=== PATIENT | male | born 1935 | race Caucasian/White ===

== ENCOUNTER 2020-10-24 05:10 | Inpatient (IN) | payer MEDICARE, BC ==
[2020-10-24] MEDS ORDERED: XYLOCAINE 2%-EPI 1:100,000 20 ML VIAL ONE (05:39)
[2020-10-24] MEDS ORDERED: Thrombin 5000 UNITS/5 ML VIAL ONE (05:40)
[2020-10-24] MEDS ORDERED: Sodium Chloride 0.9% 20 ML ONE (05:40)
[2020-10-24] MEDS ORDERED: Albumin 5% 500 ML ONE (06:17)
[2020-10-24] MEDS ORDERED: Acetaminophen 325 MG TAB PO PRN (07:35)
[2020-10-24] MEDS ORDERED: diphenhydrAMINE 50 MG CAP PO PRN (07:35)
[2020-10-24] MEDS ORDERED: Promethazine HCl 25 MG/ML VIAL IM PRN ×2 (07:35→12:57)
[2020-10-24] MEDS ORDERED: Promethazine 25 MG TAB PO PRN (07:35)
[2020-10-24] MEDS ORDERED: Mag-Al 1200 mg/1200 mg/30 ML UDCUP PO PRN (07:35)
[2020-10-24] MEDS ORDERED: Labetalol HCl 100 MG/20 ML VIAL SLOW IVP PRN (07:35)
[2020-10-24] MEDS ORDERED: Docusate 100 MG CAP PO PRN (07:35)
[2020-10-24] MEDS ORDERED: Morphine 2 MG/ML VIAL SLOW IVP PRN (07:35)
[2020-10-24] MEDS ORDERED: hydrALAZINE 20 MG/ML VIAL SLOW IVP PRN (07:35)
[2020-10-24] MEDS ORDERED: traMADol HCl 50 MG TAB PO PRN (07:43)
[2020-10-24] MEDS ORDERED: Acetaminophen/Codeine 30-300mg Tablet PO PRN (07:44)
[2020-10-24] MEDS ORDERED: CEFAZOLIN 2 GM in Premix Bag 1 BAG IVPB SCH ×3 (07:45→19:00)
[2020-10-24 08:49] LABS: Lactic Acid 2.9 mmol/L (0.5-2.2)
[2020-10-24] MEDS ORDERED: Rocuronium Bromide 10 MG/ML (10ML VIAL) ONE (10:04)
[2020-10-24] MEDS ORDERED: ePHEDrine 50 MG/ML VIAL ONE (10:04)
[2020-10-24] MEDS ORDERED: Ondansetron PF 4 MG/2 ML Vial ONE (10:04)
[2020-10-24] MEDS ORDERED: PROPOFOL 200 MG/20 ML VIAL ONE (10:04)
[2020-10-24] MEDS ORDERED: PHENYLEPHRINE-NS 100 MCG/ML 10 ML SYRINGE ONE (10:04)
[2020-10-24] MEDS ORDERED: Lidocaine 1% PF 5 ML VIAL ONE (10:04)
[2020-10-24] MEDS ORDERED: Metoprolol Tartrate 5 MG/5 ML VIAL ONE (10:49)
[2020-10-24] MEDS ORDERED: Midazolam HCl 2 mg/2 ml Vial ONE (10:50)
[2020-10-24] MEDS ORDERED: Fentanyl 100 MCG/2 ML VIAL ONE (10:50)
[2020-10-24] MEDS ORDERED: SUGAMMADEX SODIUM 200 MG/2 ML VIAL ONE (12:22)
[2020-10-24] MEDS ORDERED: Ondansetron HCl/PF 4 MG/2 ML Vial IVP PRN (12:57)
[2020-10-24] MEDS ORDERED: Promethazine HCl 25 MG/ML VIAL SLOW IVP PRN (12:57)
[2020-10-24 14:17] VITALS: BMI 25.8
[2020-10-24] MEDS: Sodium Chloride 0.9% 1,000 ML IV SCH (14:57)
[2020-10-24] MEDS ORDERED: Norepinephrine 8 MG/0.9% NS 0 ML ONE (16:55)
[2020-10-24] MEDS: CEFAZOLIN 2 GM in Premix Bag 1 BAG IVPB SCH (21:21)
[2020-10-24] MEDS ORDERED: Metoprolol Tartrate 5 MG/5 ML VIAL IVP SCH (23:30)
[2020-10-25] MEDS ORDERED: Amiodarone 450 MG, Admixture Fee 1 EACH in Dextrose 5% in Water 250 ML IVPB SCH (01:45)
[2020-10-25 02:07] LABS: Band 8 % (5-11); Hemoglobin 10.9 g/dL (14.0-18.0); Hypochromia SLIGHT = 6-15 cells (100X) (0-5/hpf); Lymphocytes 18 % (21-51); MDiff Complete? YES; Mean Corpuscular HGB CONC 35.4 g/dL (32.0-36.0); Mean Corpuscular Hemoglobin 34.8 pg (27.0-31.0); Mean Corpuscular Volume 98.5 fL (78.0-98.0); Mean Platelet Volume 7.5 fL (7.4-10.4); Monocytes 14 % (0-10); Neutrophil 52 % (42-75); Platelet Count 103 thou/uL (130-400); Platelet Morphology Comment Appears Decreased; RBC Distribution Width 14.5 % (11.5-14.5); Reactive Lymphocytes 8 % (0-10); Red Blood Cell (RBC) Count 3.12 mill/uL (4.70-6.10); White Blood Cell (WBC) Count 3.3 thou/uL (4.8-10.8)
[2020-10-25 02:24] LABS: Anion Gap 13 mmol/L (10-20); BUN (Urea Nitrogen) 16 mg/dL (8.4-25.7); Calc. Creatinine Clearance 108 mL/min (70-130); Calcium 8.3 mg/dL (7.8-10.44); Carbon Dioxide 17 mmol/L (23-31); Chloride 106 mmol/L (98-107); Glucose 129 mg/dL (83-110); Potassium 4.2 mmol/L (3.5-5.1); Sodium 132 mmol/L (136-145)
[2020-10-25] MEDS ORDERED: Magnesium 2 GM/50 ML 2 GM in Premix Bag 1 BAG IVPB SCH (03:15)
[2020-10-25] MEDS: CEFAZOLIN 2 GM in Premix Bag 1 BAG IVPB SCH ×3 (04:35→17:45)
[2020-10-25] MEDS: Sodium Chloride 0.9% 1,000 ML IV SCH ×2 (04:37→12:03)
[2020-10-25] MEDS ORDERED: Sodium Chloride 0.9% (PF) 10 ML VIAL FS PRN (07:45)
[2020-10-25 08:44] LABS: ALT (SGPT) Less than 7 U/L (8-55); AST (SGOT) 15 U/L (5-34); Albumin 2.7 g/dL (3.4-4.8); Alkaline Phosphatase 52 U/L (40-110); Anion Gap 9 mmol/L (10-20); BUN (Urea Nitrogen) 18 mg/dL (8.4-25.7); Bilirubin, Total 0.5 mg/dL (0.2-1.2); Calc. Creatinine Clearance 113 mL/min (70-130); Calcium 7.9 mg/dL (7.8-10.44); Carbon Dioxide 21 mmol/L (23-31); Chloride 106 mmol/L (98-107); Globulin 2.5 g/dL (2.4-3.5); Glucose 114 mg/dL (83-110); Potassium 4.1 mmol/L (3.5-5.1); Protein, Total 5.2 g/dL (5.8-8.1); Sodium 132 mmol/L (136-145)
[2020-10-25 08:47] LABS: Band 4 % (5-11); Hemoglobin 10.7 g/dL (14.0-18.0); Lymphocytes 19 % (21-51); MDiff Complete? YES; Mean Corpuscular HGB CONC 34.5 g/dL (32.0-36.0); Mean Corpuscular Hemoglobin 34.2 pg (27.0-31.0); Mean Platelet Volume 7.7 fL (7.4-10.4); Monocytes 14 % (0-10); Neutrophil 62 % (42-75); Platelet Count 119 thou/uL (130-400); Platelet Morphology Comment Appears Decreased; RBC Distribution Width 14.6 % (11.5-14.5); RBC Morphology Normal; Reactive Lymphocytes 1 % (0-10); Red Blood Cell (RBC) Count 3.14 mill/uL (4.70-6.10); White Blood Cell (WBC) Count 3.2 thou/uL (4.8-10.8)
[2020-10-25] MEDS: Pantoprazole 40 MG VIAL IVP SCH (09:44)
[2020-10-26] MEDS: Sodium Chloride 0.9% 1,000 ML IV SCH ×2 (05:24→14:17)
[2020-10-26] MEDS: CEFAZOLIN 2 GM in Premix Bag 1 BAG IVPB SCH ×3 (05:26→20:24)
[2020-10-26] MEDS: Pantoprazole 40 MG VIAL IVP SCH (08:25)
[2020-10-26] MEDS ORDERED: Regadenoson 0.4 MG/5 ML SYRINGE ONE (10:34)
[2020-10-26] MEDS ORDERED: Hydrocodone-Acetamin 15 ML UDCUP PER TUBE PRN (15:23)
[2020-10-26] MEDS: Amiodarone 200 MG TAB PO SCH (20:24)
[2020-10-27] MEDS: CEFAZOLIN 2 GM in Premix Bag 1 BAG IVPB SCH ×2 (02:19→12:29)
[2020-10-27] MEDS: Sodium Chloride 0.9% 1,000 ML IV SCH (02:19)
[2020-10-27] MEDS: Amiodarone 200 MG TAB PO SCH ×2 (09:29→20:54)
[2020-10-27] MEDS: Pantoprazole 40 MG VIAL IVP SCH (09:30)
[2020-10-27] MEDS: Cephalexin 250 MG CAP PO SCH (20:54)
[2020-10-27 23:30] LABS: SARS-CoV-2 PCR by NAA Not Detected (NotDetected)
[2020-10-28 07:20] LABS: Hemoglobin 10.9 g/dL (14.0-18.0); Mean Corpuscular HGB CONC 35.4 g/dL (32.0-36.0); Mean Corpuscular Hemoglobin 34.4 pg (27.0-31.0); Mean Corpuscular Volume 97.1 fL (78.0-98.0); Mean Platelet Volume 6.7 fL (7.4-10.4); Platelet Count 183 thou/uL (130-400); RBC Distribution Width 14.4 % (11.5-14.5); Red Blood Cell (RBC) Count 3.18 mill/uL (4.70-6.10); White Blood Cell (WBC) Count 2.8 thou/uL (4.8-10.8)
[2020-10-28 07:31] LABS: Anion Gap 10 mmol/L (10-20); BUN (Urea Nitrogen) 19 mg/dL (8.4-25.7); Calc. Creatinine Clearance 113 mL/min (70-130); Calcium 7.8 mg/dL (7.8-10.44); Carbon Dioxide 20 mmol/L (23-31); Chloride 106 mmol/L (98-107); Glucose 98 mg/dL (83-110); Potassium 3.8 mmol/L (3.5-5.1); Sodium 132 mmol/L (136-145)
[2020-10-28] MEDS: Cephalexin 250 MG CAP PO SCH ×2 (07:54→20:02)
[2020-10-28] MEDS: Amiodarone 200 MG TAB PO SCH ×2 (07:54→20:02)
[2020-10-28 08:52] LABS: Band 8 % (5-11); Lymphocytes 21 % (21-51); MDiff Complete? YES; Monocytes 16 % (0-10); Neutrophil 52 % (42-75); Platelet Morphology Comment Appears Adequate; RBC Morphology Normal; Reactive Lymphocytes 2 % (0-10)
[2020-10-28] MEDS ORDERED: Lidocaine 1% (PF) 30 ML VIAL ONE ×2 (09:17→10:40)
[2020-10-28] MEDS ORDERED: Gentamicin 80 MG/2 ML VIAL ONE (09:17)
[2020-10-28] MEDS ORDERED: CEFAZOLIN 1 GM VIAL ONE (09:17)
[2020-10-28] MEDS ORDERED: Fentanyl 100 MCG/2 ML VIAL ONE (10:33)
[2020-10-28] MEDS ORDERED: Midazolam HCl 2 mg/2 ml Vial ONE (10:33)
[2020-10-28] MEDS ORDERED: Vancomycin 1 GM/200 ML BAG ONE (10:41)
[2020-10-28] MEDS ORDERED: Iopamidol 370 76% 50 ML VIAL FS ONE (11:56)
[2020-10-28] MEDS: Acetaminophen 650 MG/20.3 ML UDCUP PO PRN ×2 (14:22→20:02)
[2020-10-28] MEDS ORDERED: Sodium Chloride 0.9% 1,000 ML IV SCH (16:15)
[2020-10-29 04:50] LABS: #Lymphocytes 0.7 thou/uL (1.20-3.40); #Monocytes 0.5 thou/uL (0.11-0.59); #Neutrophils 2.6 thou/uL (1.40-6.50); %Basophils 0.1 % (0.0-1.0); %Eosinophils 1.2 % (0.0-10.0); %Lymphocytes 18.6 % (21.0-51.0); %Monocytes 13.8 % (0.0-10.0); %Neutrophils 66.3 % (42.0-75.0); Hemoglobin 11.3 g/dL (14.0-18.0); Mean Corpuscular HGB CONC 34.5 g/dL (32.0-36.0); Mean Corpuscular Hemoglobin 33.7 pg (27.0-31.0); Mean Corpuscular Volume 97.6 fL (78.0-98.0); Mean Platelet Volume 7.2 fL (7.4-10.4); Platelet Count 187 thou/uL (130-400); RBC Distribution Width 14.4 % (11.5-14.5); Red Blood Cell (RBC) Count 3.35 mill/uL (4.70-6.10); White Blood Cell (WBC) Count 3.9 thou/uL (4.8-10.8)
[2020-10-29 05:11] LABS: Anion Gap 12 mmol/L (10-20); BUN (Urea Nitrogen) 19 mg/dL (8.4-25.7); Calc. Creatinine Clearance 122 mL/min (70-130); Calcium 7.8 mg/dL (7.8-10.44); Carbon Dioxide 19 mmol/L (23-31); Chloride 104 mmol/L (98-107); Glucose 94 mg/dL (83-110); Potassium 4.2 mmol/L (3.5-5.1); Sodium 131 mmol/L (136-145)
[2020-10-29] MEDS: Cephalexin 250 MG CAP PO SCH ×2 (09:03→21:35)
[2020-10-29] MEDS: Amiodarone 200 MG TAB PO SCH ×2 (09:03→21:35)
[2020-10-30 04:32] LABS: Anion Gap 11 mmol/L (10-20); BUN (Urea Nitrogen) 17 mg/dL (8.4-25.7); Calc. Creatinine Clearance 109 mL/min (70-130); Calcium 8.1 mg/dL (7.8-10.44); Carbon Dioxide 23 mmol/L (23-31); Chloride 103 mmol/L (98-107); Glucose 99 mg/dL (83-110); Potassium 4.3 mmol/L (3.5-5.1); Sodium 133 mmol/L (136-145)
[2020-10-30 05:20] LABS: Band 11 % (5-11); Hemoglobin 11.6 g/dL (14.0-18.0); Lymphocytes 17 % (21-51); MDiff Complete? YES; Mean Corpuscular HGB CONC 34.8 g/dL (32.0-36.0); Mean Corpuscular Hemoglobin 33.6 pg (27.0-31.0); Mean Corpuscular Volume 96.6 fL (78.0-98.0); Mean Platelet Volume 6.9 fL (7.4-10.4); Monocytes 14 % (0-10); Neutrophil 57 % (42-75); Platelet Count 178 thou/uL (130-400); RBC Distribution Width 14.5 % (11.5-14.5); Red Blood Cell (RBC) Count 3.44 mill/uL (4.70-6.10)
[2020-10-30] MEDS: Cephalexin 250 MG CAP PO SCH ×2 (08:16→20:06)
[2020-10-30] MEDS: Amiodarone 200 MG TAB PO SCH ×2 (08:16→20:06)
[2020-10-31 04:49] LABS: Anion Gap 12 mmol/L (10-20); BUN (Urea Nitrogen) 20 mg/dL (8.4-25.7); Calc. Creatinine Clearance 111 mL/min (70-130); Calcium 8.1 mg/dL (7.8-10.44); Carbon Dioxide 21 mmol/L (23-31); Chloride 102 mmol/L (98-107); Glucose 101 mg/dL (83-110); Hemoglobin 11.6 g/dL (14.0-18.0); Mean Corpuscular HGB CONC 34.4 g/dL (32.0-36.0); Mean Corpuscular Hemoglobin 33.6 pg (27.0-31.0); Mean Corpuscular Volume 97.5 fL (78.0-98.0); Mean Platelet Volume 7.1 fL (7.4-10.4); Platelet Count 156 thou/uL (130-400); Potassium 4.5 mmol/L (3.5-5.1); RBC Distribution Width 14.5 % (11.5-14.5); Red Blood Cell (RBC) Count 3.46 mill/uL (4.70-6.10); Sodium 130 mmol/L (136-145); White Blood Cell (WBC) Count 4.3 thou/uL (4.8-10.8)
[2020-10-31 06:26] LABS: Band 12 % (5-11); Eosinophils 3 % (0-10); Lymphocytes 18 % (21-51); MDiff Complete? YES; Monocytes 12 % (0-10); Neutrophil 55 % (42-75)
[2020-10-31] MEDS ORDERED: Zolpidem Tartrate 5 MG TAB PO PRN (08:09)
[2020-10-31] MEDS ORDERED: Calcium Carbonate 500 MG ChewTAB PO PRN (08:09)
[2020-10-31] MEDS ORDERED: HYDROcodone/Acetaminophen 5/325 mg Tablet PO PRN (08:09)
[2020-10-31] MEDS ORDERED: Loperamide HCl 2 MG CAP PO PRN (08:09)
[2020-10-31] MEDS ORDERED: Loratadine 10 MG TAB PO PRN (08:09)
[2020-10-31] MEDS ORDERED: Bisacodyl 5 MG TAB PO PRN (08:09)
[2020-10-31] MEDS ORDERED: Sodium Chloride 0.65% Nasal 44 ML BOT EA NARE PRN (08:09)
[2020-10-31] MEDS ORDERED: Benzonatate 100 MG CAP PO PRN (08:09)
[2020-10-31] MEDS ORDERED: Senokot S 8.6-50 MG TAB PO PRN (08:09)
[2020-10-31] MEDS ORDERED: GUAIFENESIN SF SOLN 200 MG/10 ML UDCUP PO PRN (08:09)
[2020-10-31] MEDS ORDERED: Cepastat Lozenges 1 LOZ PO PRN (08:09)
[2020-10-31] MEDS: Cephalexin 250 MG CAP PO SCH (09:21)
[2020-10-31] MEDS: Amiodarone 200 MG TAB PO SCH (09:22)
[2020-10-31 15:53] VITALS: BP 98/65; TEMP 98.2
[2020-11-01] MEDS ORDERED: Atropine Sulfate 1% Ophth Soln 5 ml Bottle PO PRN (16:20)
[2020-11-11] MEDS ORDERED: Amiodarone 200 MG TAB PO SCH (09:00)
[2020-11-25] MEDS ORDERED: Amiodarone 200 MG TAB PO SCH (09:00)
== END 2020-10-31 19:45 | disposition swing bed (61) | DRG 26 ==
LOC: ERS 05:10 → SDC 10:07 → CCU 14:01 → 2NO 10-25 19:24
PROVIDERS: ADMIT Neurological Surgery; ATTEND Internal Medicine
PROC: 00C40ZZ Extirpation of Matter from Intracranial Subdural Space, Open Approach (ICD-10-PCS; principal; 2020-10-24)
PROC: 0JH606Z Insertion of Pacemaker, Dual Chamber into Chest Subcutaneous Tissue and Fascia, Open Approach (ICD-10-PCS; 2020-10-28)
PROC: 02H63JZ Insertion of Pacemaker Lead into Right Atrium, Percutaneous Approach (ICD-10-PCS; 2020-10-28)
PROC: 02HK3JZ Insertion of Pacemaker Lead into Right Ventricle, Percutaneous Approach (ICD-10-PCS; 2020-10-28)
DX: I62.00 Nontraumatic subdural hemorrhage, unspecified (principal); E44.0 Moderate protein-calorie malnutrition; G81.91 Hemiplegia, unspecified affecting right dominant side; C15.9 Malignant neoplasm of esophagus, unspecified; Z20.822 Contact with and (suspected) exposure to COVID-19; G89.29 Other chronic pain; M25.512 Pain in left shoulder; M54.9 Dorsalgia, unspecified; I10 Essential (primary) hypertension; I48.0 Paroxysmal atrial fibrillation; I49.3 Ventricular premature depolarization; R00.1 Bradycardia, unspecified; Z93.1 Gastrostomy status; Z98.890 Other specified postprocedural states; Z79.899 Other long term (current) drug therapy; Z68.25 Body mass index [BMI] 25.0-25.9, adult; Z87.891 Personal history of nicotine dependence
CPT/HCPCS: 33208; 36005; 36415; 70450; 71045; 75820; 78452; 80048; 83605; 83735; 85025; 86850; 86900; 86901; 87635; 93005; 93010; 93017; 93306; 97139; 99152; 99153; 99285; A9500; C1785; C1898; C9113; J0282; J0690; J1580; J2001; J2250; J2405; J2550; J2704; J2785; J3010; J3370; J3475; J3490; J7070; P9045; Q9967; U0003; U0005

== ENCOUNTER 2020-12-07 09:23 | Inpatient (IN) | payer MEDICARE, BC ==
[2020-12-07 11:21] LABS: PTT 30.5 sec (22.9-36.1); Prothrombin Time 13.1 sec (12.0-14.7)
[2020-12-07 11:28] LABS: #Eosinphils 0.2 thou/uL (0.0-0.7); #Lymphocytes 2.9 thou/uL (1.20-3.40); #Monocytes 0.8 thou/uL (0.11-0.59); #Neutrophils 4.6 thou/uL (1.40-6.50); %Basophils 0.3 % (0.0-1.0); %Eosinophils 2.4 % (0.0-10.0); %Monocytes 9.1 % (0.0-10.0); %Neutrophils 54.3 % (42.0-75.0); Hemoglobin 12.9 g/dL (14.0-18.0); Mean Corpuscular HGB CONC 33.9 g/dL (32.0-36.0); Mean Platelet Volume 7.4 fL (7.4-10.4); Platelet Count 187 thou/uL (130-400); RBC Distribution Width 13.3 % (11.5-14.5); Red Blood Cell (RBC) Count 3.69 mill/uL (4.70-6.10); White Blood Cell (WBC) Count 8.5 thou/uL (4.8-10.8)
[2020-12-07] MEDS ORDERED: Fentanyl 100 MCG/2 ML VIAL ONE ×2 (12:11→14:37)
[2020-12-07] MEDS ORDERED: Phenylephrine 10 MG/ML VIAL ONE (12:11)
[2020-12-07] MEDS ORDERED: Thrombin 5000 UNITS/5 ML VIAL ONE (12:12)
[2020-12-07] MEDS ORDERED: Lidocaine 0.5%/Epinephrine 1:200,000 50 ml Vial ONE (12:12)
[2020-12-07] MEDS ORDERED: Promethazine HCl 12.5 MG SUPP PR PRN (12:23)
[2020-12-07] MEDS ORDERED: Mag-Al 1200 mg/1200 mg/30 ML UDCUP PO PRN (12:23)
[2020-12-07] MEDS ORDERED: Promethazine HCl 25 MG/ML VIAL IM PRN ×2 (12:23→14:32)
[2020-12-07] MEDS ORDERED: Docusate 100 MG CAP PO PRN (12:23)
[2020-12-07] MEDS ORDERED: Promethazine 25 MG TAB PO PRN (12:23)
[2020-12-07] MEDS ORDERED: diphenhydrAMINE 50 MG/ML VIAL IVP PRN (12:23)
[2020-12-07] MEDS ORDERED: Fleet Enema 133 ML BOT PR PRN (12:23)
[2020-12-07] MEDS ORDERED: Lidocaine 1% PF 5 ML VIAL ONE (12:42)
[2020-12-07] MEDS ORDERED: Ondansetron PF 4 MG/2 ML Vial ONE (12:42)
[2020-12-07] MEDS ORDERED: PHENYLEPHRINE-NS 100 MCG/ML 10 ML SYRINGE ONE (12:42)
[2020-12-07] MEDS ORDERED: ePHEDrine Sulfate 50 MG/10 ML VIAL ONE (12:42)
[2020-12-07] MEDS ORDERED: PROPOFOL 200 MG/20 ML VIAL ONE (12:42)
[2020-12-07] MEDS ORDERED: Rocuronium Bromide 10 MG/ML (10ML VIAL) ONE (12:42)
[2020-12-07] MEDS ORDERED: SUGAMMADEX SODIUM 200 MG/2 ML VIAL ONE (13:35)
[2020-12-07] MEDS ORDERED: Promethazine HCl 25 MG/ML VIAL SLOW IVP PRN (14:32)
[2020-12-07] MEDS ORDERED: Ondansetron HCl/PF 4 MG/2 ML Vial IVP PRN (14:32)
[2020-12-07] MEDS: Sodium Chloride 0.9% 1,000 ML IV SCH (16:13)
[2020-12-07] MEDS: CEFAZOLIN 2 GM in Premix Bag 1 BAG IVPB SCH (19:49)
[2020-12-07] MEDS: Morphine 2 MG/ML VIAL SLOW IVP PRN ×2 (19:49→22:14)
[2020-12-08] MEDS: Sodium Chloride 0.9% 1,000 ML IV SCH ×2 (01:00→17:09)
[2020-12-08] MEDS: CEFAZOLIN 2 GM in Premix Bag 1 BAG IVPB SCH ×3 (03:55→19:32)
[2020-12-08 05:51] LABS: #Eosinphils 0.1 thou/uL (0.0-0.7); #Lymphocytes 1.6 thou/uL (1.20-3.40); #Monocytes 0.8 thou/uL (0.11-0.59); #Neutrophils 7.4 thou/uL (1.40-6.50); %Basophils 0.4 % (0.0-1.0); %Eosinophils 0.5 % (0.0-10.0); %Lymphocytes 16.2 % (21.0-51.0); %Neutrophils 74.9 % (42.0-75.0); Hemoglobin 11.7 g/dL (14.0-18.0); Mean Corpuscular HGB CONC 34.3 g/dL (32.0-36.0); Mean Platelet Volume 7.8 fL (7.4-10.4); Platelet Count 131 thou/uL (130-400); RBC Distribution Width 13.1 % (11.5-14.5); Red Blood Cell (RBC) Count 3.35 mill/uL (4.70-6.10); White Blood Cell (WBC) Count 9.9 thou/uL (4.8-10.8)
[2020-12-08] MEDS: Pantoprazole 40 MG VIAL IVP SCH (08:17)
[2020-12-08] MEDS ORDERED: Bisacodyl 10 MG SUPP PR PRN (09:59)
[2020-12-08] MEDS ORDERED: Metoclopramide 10 MG/10 ML UDCUP PER TUBE PRN (10:07)
[2020-12-08] MEDS ORDERED: Polyethylene Glycol 3350 17 GM Packet PER TUBE SCH (10:30)
[2020-12-08] MEDS ORDERED: Amiodarone 200 MG TAB PO SCH (10:30)
[2020-12-08] MEDS: HYDROcodone/Acetaminophen 10/325 mg Tablet PO PRN ×2 (10:32→23:31)
[2020-12-08] MEDS: Ondansetron PF 4 MG/2 ML Vial IVP PRN (11:10)
[2020-12-08] MEDS: Morphine 2 MG/ML VIAL SLOW IVP PRN (11:10)
[2020-12-09 04:17] LABS: Anion Gap 10 mmol/L (10-20); BUN (Urea Nitrogen) 21 mg/dL (8.4-25.7); Calc. Creatinine Clearance 101 mL/min (70-130); Calcium 7.8 mg/dL (7.8-10.44); Carbon Dioxide 25 mmol/L (23-31); Chloride 103 mmol/L (98-107); Glucose 119 mg/dL (83-110); Potassium 4.5 mmol/L (3.5-5.1); Sodium 133 mmol/L (136-145)
[2020-12-09] MEDS: CEFAZOLIN 2 GM in Premix Bag 1 BAG IVPB SCH ×3 (04:55→20:17)
[2020-12-09] MEDS: Sodium Chloride 0.9% 1,000 ML IV SCH ×2 (08:30→20:19)
[2020-12-09] MEDS: Pantoprazole 40 MG VIAL IVP SCH (09:46)
[2020-12-09] MEDS: Amiodarone 200 MG TAB PO SCH (09:46)
[2020-12-09] MEDS: Polyethylene Glycol 3350 17 GM Packet PER TUBE SCH (09:46)
[2020-12-09] MEDS: HYDROcodone/Acetaminophen 10/325 mg Tablet PO PRN (10:01)
[2020-12-09] MEDS: Sodium Chloride 1 GM TAB PER TUBE SCH ×3 (10:07→20:18)
[2020-12-10] MEDS: HYDROcodone/Acetaminophen 10/325 mg Tablet PO PRN (01:36)
[2020-12-10 04:23] LABS: #Eosinphils 0.2 thou/uL (0.0-0.7); #Lymphocytes 2.1 thou/uL (1.20-3.40); #Neutrophils 5.7 thou/uL (1.40-6.50); %Basophils 0.2 % (0.0-1.0); %Eosinophils 1.7 % (0.0-10.0); %Lymphocytes 23.4 % (21.0-51.0); %Monocytes 11.3 % (0.0-10.0); %Neutrophils 63.4 % (42.0-75.0); Hemoglobin 11.2 g/dL (14.0-18.0); Mean Corpuscular HGB CONC 33.9 g/dL (32.0-36.0); Mean Corpuscular Hemoglobin 35.2 pg (27.0-31.0); Mean Platelet Volume 7.6 fL (7.4-10.4); Platelet Count 135 thou/uL (130-400); RBC Distribution Width 12.9 % (11.5-14.5); Red Blood Cell (RBC) Count 3.19 mill/uL (4.70-6.10); White Blood Cell (WBC) Count 8.9 thou/uL (4.8-10.8)
[2020-12-10 04:38] LABS: Anion Gap 10 mmol/L (10-20); BUN (Urea Nitrogen) 22 mg/dL (8.4-25.7); Calc. Creatinine Clearance 111 mL/min (70-130); Calcium 8.3 mg/dL (7.8-10.44); Carbon Dioxide 25 mmol/L (23-31); Chloride 101 mmol/L (98-107); Glucose 100 mg/dL (83-110); Potassium 4.6 mmol/L (3.5-5.1); Sodium 131 mmol/L (136-145)
[2020-12-10] MEDS: CEFAZOLIN 2 GM in Premix Bag 1 BAG IVPB SCH ×2 (05:03→12:30)
[2020-12-10] MEDS: Sodium Chloride 0.9% 1,000 ML IV SCH (09:08)
[2020-12-10] MEDS: Pantoprazole 40 MG VIAL IVP SCH (09:12)
[2020-12-10] MEDS: Polyethylene Glycol 3350 17 GM Packet PER TUBE SCH (09:12)
[2020-12-10] MEDS: Amiodarone 200 MG TAB PO SCH (09:12)
[2020-12-10] MEDS: Sodium Chloride 1 GM TAB PER TUBE SCH ×3 (09:12→21:51)
[2020-12-10 13:52] VITALS: BMI 25.5
[2020-12-10] MEDS: Ondansetron PF 4 MG/2 ML Vial IVP PRN (19:10)
[2020-12-11 07:26] LABS: Anion Gap 10 mmol/L (10-20); BUN (Urea Nitrogen) 21 mg/dL (8.4-25.7); Calc. Creatinine Clearance 106 mL/min (70-130); Calcium 8.7 mg/dL (7.8-10.44); Carbon Dioxide 25 mmol/L (23-31); Chloride 100 mmol/L (98-107); Glucose 97 mg/dL (83-110); Potassium 4.4 mmol/L (3.5-5.1); Sodium 131 mmol/L (136-145)
[2020-12-11] MEDS: Amiodarone 200 MG TAB PO SCH (09:31)
[2020-12-11] MEDS: Polyethylene Glycol 3350 17 GM Packet PER TUBE SCH (09:32)
[2020-12-11] MEDS: Sodium Chloride 1 GM TAB PER TUBE SCH (09:32)
[2020-12-11 12:21] VITALS: BP 123/62; TEMP 97.5
== END 2020-12-11 13:36 | disposition swing bed (61) | DRG 26 ==
LOC: EDSTATUS 09:24 → SURG A 10:32 → CCU 15:30 → 2SE 12-10 16:22
PROVIDERS: ADMIT Neurological Surgery; ATTEND Neurological Surgery
PROC: 009400Z Drainage of Intracranial Subdural Space with Drainage Device, Open Approach (ICD-10-PCS; principal; 2020-12-07)
DX: I62.03 Nontraumatic chronic subdural hemorrhage (principal); C15.9 Malignant neoplasm of esophagus, unspecified; E87.1 Hypo-osmolality and hyponatremia; Z20.822 Contact with and (suspected) exposure to COVID-19; I10 Essential (primary) hypertension; G89.29 Other chronic pain; M25.512 Pain in left shoulder; M54.9 Dorsalgia, unspecified; I48.0 Paroxysmal atrial fibrillation; E78.5 Hyperlipidemia, unspecified; R13.10 Dysphagia, unspecified; M19.90 Unspecified osteoarthritis, unspecified site; K21.9 Gastro-esophageal reflux disease without esophagitis; K59.09 Other constipation; Z95.0 Presence of cardiac pacemaker; Z79.899 Other long term (current) drug therapy; Z98.890 Other specified postprocedural states; Z92.21 Personal history of antineoplastic chemotherapy; Z92.3 Personal history of irradiation; Z93.1 Gastrostomy status
CPT/HCPCS: 36415; 70450; 80048; 82607; 82746; 85025; 85610; 85730; 87070; 87205; C9113; J0690; J2001; J2270; J2370; J2405; J2704; J3010; J3490

== ENCOUNTER 2022-07-03 23:56 | Inpatient (IN) | payer MEDICARE, BC ==
[2022-07-04 00:38] VITALS: BMI 27.1
[2022-07-04] MEDS ORDERED: TETANUS, DIPHTHERIA TOX,ADULT (TDVAX) 0.5 ML VIAL IM ONE (00:53)
[2022-07-04] MEDS ORDERED: hydrALAZINE 20 MG/ML VIAL SLOW IVP PRN (00:53)
[2022-07-04] MEDS ORDERED: Ondansetron PF 4 MG/2 ML Vial IVP PRN ×2 (00:53→13:23)
[2022-07-04] MEDS ORDERED: Promethazine HCl 25 MG SUPP PR PRN (00:56)
[2022-07-04] MEDS ORDERED: Sodium Chloride 0.9% 1,000 ML IV SCH (01:00)
[2022-07-04] MEDS ORDERED: Acetaminophen 325 MG TAB PO SCH (01:00)
[2022-07-04] MEDS ORDERED: Hydrocodone-Acetamin 15 ML UDCUP PER TUBE PRN (01:09)
[2022-07-04] MEDS: Morphine 4 MG/ML VIAL SLOW IVP PRN ×2 (02:17→18:18)
[2022-07-04] MEDS: Acetaminophen 325 MG TAB PO SCH ×3 (02:18→12:45)
[2022-07-04] MEDS: traMADol HCl 50 MG TAB PO PRN ×2 (02:20→21:18)
[2022-07-04 05:08] LABS: SARS-CoV-2 NAA Rapid Test Not Detected (NotDetected)
[2022-07-04] MEDS: traMADol HCl 50 MG TAB PO SCH ×3 (06:00→17:41)
[2022-07-04 06:22] LABS: #Eosinphils 0.1 thou/uL (0.0-0.7); #Lymphocytes 1.1 thou/uL (1.20-3.40); #Monocytes 0.6 thou/uL (0.11-0.59); #Neutrophils 2.2 thou/uL (1.40-6.50); %Basophils 0.6 % (0.0-1.0); %Lymphocytes 26.9 % (21.0-51.0); %Monocytes 14.6 % (0.0-10.0); %Neutrophils 54.9 % (42.0-75.0); Hemoglobin 12.6 g/dL (14.0-18.0); Mean Corpuscular HGB CONC 32.9 g/dL (32.0-36.0); Mean Platelet Volume 8.5 fL (7.4-10.4); Platelet Count 72 10x3/uL (130-400); RBC Distribution Width 13.1 % (11.5-14.5)
[2022-07-04 06:30] LABS: INR-International Normal Ratio 1.1; Prothrombin Time 14.6 sec (12.0-14.7)
[2022-07-04 06:31] LABS: PTT 37.8 sec (22.9-36.1)
[2022-07-04 06:36] LABS: Phosphorus 2.9 mg/dL (2.3-4.7)
[2022-07-04 06:39] LABS: Anion Gap 10 mmol/L (10-20); BUN (Urea Nitrogen) 21 mg/dL (8.4-25.7); Calc. Creatinine Clearance 78 mL/min (70-130); Calcium 8.5 mg/dL (7.8-10.44); Carbon Dioxide 24 mmol/L (23-31); Chloride 107 mmol/L (98-107); Estimated GFR 77; Glucose 94 mg/dL (83-110); Magnesium 2.1 mg/dL (1.6-2.6); Potassium 4.5 mmol/L (3.5-5.1); Sodium 136 mmol/L (136-145)
[2022-07-04] MEDS ORDERED: Tranexamic Acid 1,000 MG in Sodium Chloride 0.9% 250 ML 250 ML IVPB SCH ×2 (07:30→07:45)
[2022-07-04] MEDS ORDERED: CEFAZOLIN 2 GM in Sodium Chloride 0.9% 100 ML IVPB SCH (07:30)
[2022-07-04] MEDS ORDERED: Vancomycin 1 GM in Premix Bag 1 BAG IVPB SCH (07:45)
[2022-07-04] MEDS ORDERED: Amiodarone 200 MG TAB PO SCH (09:00)
[2022-07-04] MEDS ORDERED: Simvastatin 10 MG TAB PO SCH (09:00)
[2022-07-04] MEDS ORDERED: Polyethylene Glycol 3350 17 GM Packet PER TUBE SCH (09:00)
[2022-07-04] MEDS: Amiodarone 200 MG TAB PO SCH (09:58)
[2022-07-04] MEDS: Famotidine/PF 20 mg/2ml Vial SLOW IVP SCH ×2 (09:58→21:17)
[2022-07-04] MEDS ORDERED: Vancomycin 1 GM/200 ML (FROZEN) BAG ONE (11:03)
[2022-07-04] MEDS ORDERED: Tranexamic Acid 1,000 MG/10 ML VIAL ONE (11:04)
[2022-07-04] MEDS ORDERED: Sodium Chloride 0.9% 100 ML ONE ×2 (11:05→13:44)
[2022-07-04] MEDS ORDERED: Promethazine HCl 25 MG/ML VIAL IM PRN ×2 (13:23→15:42)
[2022-07-04] MEDS ORDERED: diphenhydrAMINE 25 MG CAP PO PRN (13:23)
[2022-07-04] MEDS ORDERED: Fentanyl 100 MCG/2 ML VIAL SLOW IVP PRN (13:23)
[2022-07-04] MEDS ORDERED: Zolpidem Tartrate 5 MG TAB PO PRN (13:23)
[2022-07-04] MEDS ORDERED: Acetaminophen 325 MG TAB PO PRN (13:23)
[2022-07-04] MEDS ORDERED: HYDROcodone/Acetaminophen 10/325 mg Tablet PO PRN ×2 (13:23)
[2022-07-04] MEDS ORDERED: Phenylephrine 10 MG/ML VIAL ONE (13:34)
[2022-07-04] MEDS ORDERED: fentaNYL PF 100 MCG/2 ML SYRINGE ONE (13:34)
[2022-07-04] MEDS ORDERED: CEFAZOLIN 2 GM VIAL ONE (13:44)
[2022-07-04] MEDS ORDERED: FENTANYL 50 MCG/ML 1 ML VIAL SLOW IVP PRN (13:51)
[2022-07-04] MEDS ORDERED: Metoprolol Tartrate 5 MG/5 ML VIAL ONE (14:07)
[2022-07-04] MEDS ORDERED: Ondansetron PF 4 MG/2 ML Vial ONE (14:07)
[2022-07-04] MEDS ORDERED: Labetalol HCl 100 MG/20 ML VIAL ONE (14:07)
[2022-07-04] MEDS ORDERED: ePHEDrine 50 MG/ML VIAL ONE (14:07)
[2022-07-04] MEDS ORDERED: PROPOFOL 200 MG/20 ML VIAL ONE (14:07)
[2022-07-04] MEDS ORDERED: Rocuronium Bromide 10 MG/ML (10ML VIAL) ONE (14:07)
[2022-07-04] MEDS ORDERED: SUGAMMADEX SODIUM 200 MG/2 ML VIAL ONE (15:21)
[2022-07-04] MEDS ORDERED: Promethazine HCl 25 MG/ML VIAL IVPB PRN (15:42)
[2022-07-04] MEDS ORDERED: Ondansetron HCl/PF 4 MG/2 ML Vial IVP PRN (15:42)
[2022-07-04] MEDS: Acetaminophen 500 MG TAB PO SCH (19:16)
[2022-07-04] MEDS: Aspirin 81 mg Enteric Coated Tablet PO SCH (21:17)
[2022-07-04] MEDS: Ferrous Gluconate 324 MG TAB PO SCH (21:17)
[2022-07-04] MEDS: Tamsulosin HCl 0.4 MG CAP PO SCH (21:17)
[2022-07-04] MEDS: Senokot S 8.6-50 MG TAB PO SCH (21:17)
[2022-07-04] MEDS: CEFAZOLIN 2 GM in Sodium Chloride 0.9% 100 ML IVPB SCH (21:24)
[2022-07-05] MEDS: traMADol HCl 50 MG TAB PO SCH ×2 (00:52→05:10)
[2022-07-05] MEDS: Acetaminophen 500 MG TAB PO SCH ×2 (00:52→05:15)
[2022-07-05] MEDS: CEFAZOLIN 2 GM in Sodium Chloride 0.9% 100 ML IVPB SCH (05:10)
[2022-07-05 06:36] LABS: #Eosinphils 0.1 thou/uL (0.0-0.7); #Lymphocytes 1.2 thou/uL (1.20-3.40); #Monocytes 0.9 thou/uL (0.11-0.59); #Neutrophils 3.7 thou/uL (1.40-6.50); %Basophils 0.1 % (0.0-1.0); %Eosinophils 1.2 % (0.0-10.0); %Lymphocytes 20.7 % (21.0-51.0); %Monocytes 14.5 % (0.0-10.0); %Neutrophils 63.6 % (42.0-75.0); Hemoglobin 11.8 g/dL (14.0-18.0); Mean Corpuscular HGB CONC 33.6 g/dL (32.0-36.0); Mean Corpuscular Hemoglobin 35.3 pg (27.0-31.0); Mean Platelet Volume 8.5 fL (7.4-10.4); Platelet Count 74 10x3/uL (130-400); RBC Distribution Width 13.4 % (11.5-14.5); Red Blood Cell (RBC) Count 3.35 mill/uL (4.70-6.10); White Blood Cell (WBC) Count 5.9 10x3/uL (4.8-10.8)
[2022-07-05 06:37] LABS: Anion Gap 10 mmol/L (10-20); BUN (Urea Nitrogen) 22 mg/dL (8.4-25.7); Calc. Creatinine Clearance 68 mL/min (70-130); Calcium 8.1 mg/dL (7.8-10.44); Carbon Dioxide 22 mmol/L (23-31); Chloride 106 mmol/L (98-107); Estimated GFR 66; Glucose 119 mg/dL (83-110); Magnesium 1.9 mg/dL (1.6-2.6); Phosphorus 3.2 mg/dL (2.3-4.7); Sodium 133 mmol/L (136-145)
[2022-07-05] MEDS ORDERED: Famotidine 20 MG TAB PO SCH (09:00)
[2022-07-05] MEDS ORDERED: Dexamethasone 10 MG/ML VIAL SLOW IVP SCH (09:00)
[2022-07-05] MEDS: traMADol HCl 50 MG TAB PO PRN (09:20)
[2022-07-05] MEDS: Aspirin 81 mg Enteric Coated Tablet PO SCH ×2 (09:45→21:07)
[2022-07-05] MEDS: Ferrous Gluconate 324 MG TAB PO SCH ×2 (09:45→21:07)
[2022-07-05] MEDS: Multivitamin W/ Minerals 1 TAB PO SCH (09:45)
[2022-07-05] MEDS: Senokot S 8.6-50 MG TAB PO SCH ×2 (09:46→21:06)
[2022-07-05] MEDS: Amiodarone 200 MG TAB PO SCH (09:46)
[2022-07-05] MEDS ORDERED: Acetaminophen 500 MG TAB PO SCH (10:39)
[2022-07-05] MEDS ORDERED: traMADol HCl 50 MG TAB PO PRN (10:39)
[2022-07-05] MEDS ORDERED: Acetaminophen/Codeine 30-300mg Tablet PO SCH ×2 (10:45→15:00)
[2022-07-05] MEDS ORDERED: Acetaminophen 325 MG TAB PO SCH (12:00)
[2022-07-05] MEDS: Acetaminophen/Codeine 30-300mg Tablet PO SCH ×2 (12:29→19:00)
[2022-07-05] MEDS: Ibuprofen 200 MG TAB PO SCH ×2 (15:14→21:05)
[2022-07-05] MEDS: Acetaminophen 325 MG TAB PO SCH ×2 (15:15→21:06)
[2022-07-05] MEDS: Tamsulosin HCl 0.4 MG CAP PO SCH (21:05)
[2022-07-06] MEDS: Acetaminophen/Codeine 30-300mg Tablet PO SCH ×3 (01:05→13:50)
[2022-07-06] MEDS: Ibuprofen 200 MG TAB PO SCH ×2 (05:24→15:39)
[2022-07-06] MEDS: Acetaminophen 325 MG TAB PO SCH ×2 (05:25→09:41)
[2022-07-06 06:20] LABS: Band 6 % (5-11); Hemoglobin 11.2 g/dL (14.0-18.0); Hypochromia SLIGHT = 6-15 cells (100X) (0-5/hpf); Lymphocytes 6 % (21-51); MDiff Complete? YES; Macrocytosis SLIGHT = 6-15 cells (100X) (0-5/hpf); Mean Corpuscular HGB CONC 33.1 g/dL (32.0-36.0); Mean Corpuscular Hemoglobin 35.1 pg (27.0-31.0); Mean Platelet Volume 8.7 fL (7.4-10.4); Monocytes 16 % (0-10); Neutrophil 71 % (42-75); Platelet Count 63 10x3/uL (130-400); Platelet Morphology Comment Appears Decreased; RBC Distribution Width 13.1 % (11.5-14.5); Reactive Lymphocytes 1 % (0-10); Red Blood Cell (RBC) Count 3.18 mill/uL (4.70-6.10); White Blood Cell (WBC) Count 6.7 10x3/uL (4.8-10.8)
[2022-07-06 06:51] LABS: Anion Gap 8 mmol/L (10-20); BUN (Urea Nitrogen) 24 mg/dL (8.4-25.7); Calc. Creatinine Clearance 71 mL/min (70-130); Calcium 8.2 mg/dL (7.8-10.44); Carbon Dioxide 24 mmol/L (23-31); Chloride 106 mmol/L (98-107); Estimated GFR 69; Glucose 148 mg/dL (83-110); Magnesium 2.3 mg/dL (1.6-2.6); Phosphorus 2.2 mg/dL (2.3-4.7); Potassium 4.2 mmol/L (3.5-5.1); Sodium 134 mmol/L (136-145)
[2022-07-06] MEDS ORDERED: Meclizine HCl 25 MG TAB PO PRN (07:45)
[2022-07-06] MEDS ORDERED: Sodium Phosphate 30 MMOL in Sodium Chloride 0.9% 250 ML 250 ML IVPB SCH (07:45)
[2022-07-06] MEDS ORDERED: Atropine Sulfate 1% Ophth Soln 5 ml Bottle PO PRN (07:45)
[2022-07-06] MEDS: Amiodarone 200 MG TAB PO SCH (08:49)
[2022-07-06] MEDS: Aspirin 81 mg Enteric Coated Tablet PO SCH (08:50)
[2022-07-06] MEDS: Ferrous Gluconate 324 MG TAB PO SCH (08:50)
[2022-07-06] MEDS: Senokot S 8.6-50 MG TAB PO SCH (08:51)
[2022-07-06] MEDS: Multivitamin W/ Minerals 1 TAB PO SCH (08:51)
[2022-07-06] MEDS ORDERED: Ramipril 5 MG CAP PO SCH (09:00)
[2022-07-06 12:08] VITALS: BP 112/62; TEMP 97.5
== END 2022-07-06 14:10 | DRG 522 ==
LOC: SURG B 23:56
PROVIDERS: ADMIT Specialist; ATTEND Surgery
PROC: 0SR90J9 Replacement of Right Hip Joint with Synthetic Substitute, Cemented, Open Approach (ICD-10-PCS; principal; 2022-07-04)
DX: S72.101A Unspecified trochanteric fracture of right femur, initial encounter for closed fracture (principal); C15.9 Malignant neoplasm of esophagus, unspecified; C78.7 Secondary malignant neoplasm of liver and intrahepatic bile duct; N17.9 Acute kidney failure, unspecified; I48.91 Unspecified atrial fibrillation; I10 Essential (primary) hypertension; E87.6 Hypokalemia; Z95.0 Presence of cardiac pacemaker; W18.30XA Fall on same level, unspecified, initial encounter
CPT/HCPCS: 36415; 80048; 83735; 84100; 85025; 85610; 85730; 86850; 86900; 86901; 88305; 88311; C1776; J1100; J2270; J2370; J2405; J2704; J3370-JW; J3490; J7050; S0028; U0002

== ENCOUNTER 2022-07-18 08:44 | Outpatient (CLI) | payer MEDICARE, BC | END 2022-07-18 08:45 | disposition home or self-care (01) | LOC: RAD 08:44 | PROVIDERS: ATTEND Family Medicine | DX: K22.4 Dyskinesia of esophagus (principal); Z85.01 Personal history of malignant neoplasm of esophagus | CPT/HCPCS: 74220 ==